=== PATIENT | female | born 1960 | race Caucasian/White ===

== ENCOUNTER → 2023-12-10 | Outpatient (CLI) | payer OTHER ==
--- NOTE | 2024-01-02 14:27 | MM ---
Reason for Exam: Screening (asymptomatic). Patient History: Menarche at age 10. First Full-Term at age 16. Postmenopausal. Risk Values: Charlene 5 year model risk: 1.2%. NCI Lifetime model risk: 4.6%. Tissue Density: The breasts are heterogeneously dense, which may obscure small masses. Findings: Analyzed By CAD. Right breast: There is no suspicious group of microcalcifications or new suspicious mass. Benign-appearing calcifications right breast. Left breast: There is no suspicious group of microcalcifications or new suspicious mass. Left breast suspected hematoma with focal upper outer fibroglandular tissue. Overall Assessment: Benign, BI-RAD 2 Management: Screening Mammogram of both breasts in [address] [facility] will attempt to contact patient to return for supplemental views and ultrasound if indicated. Patient should continue monthly self-breast exams. A clinical breast exam by your physician is recommended on an annual basis. This exam should not preclude additional follow-up of suspicious palpable abnormalities. Note on Charlene scores and lifetime risk: 1. A Charlene score greater than 3% is considered moderate risk. If this is the case, consider specialist referral to assess eligibility for a risk reducing agent. 2. If overall lifetime risk for the development of breast cancer is 20% or higher, the patient may qualify for future screening with alternating mammogram and breast MRI. Electronically signed and approved by: Kalia Diggs DO
== END | disposition home or self-care (01) ==
LOC: RADMAMWWP 13:50
PROVIDERS: ATTEND Family Medicine
DX: Z12.31 Encounter for screening mammogram for malignant neoplasm of breast (principal); Z78.0 Asymptomatic menopausal state
CPT/HCPCS: 77063; 77067

== ENCOUNTER 2024-07-14 08:44 | Day surgery (SDC) | payer OTHER ==
[~2024-07-14 08:44] MED LIST: LIDOCAINE 1% (10MG/ML) FOR IV START INTRADERMA PRN
[2024-07-14 09:09] VITALS: TEMP 98.9
[2024-07-14] MEDS: LACTATED RINGERS 1,000 ML IV SCH (09:18)
[2024-07-14] MEDS: IV FLUID CONTINUATION 1,000 ML IV ONE (09:18)
[2024-07-14] MEDS ORDERED: PROPOFOL 10 MG/ML 20 ML VIAL IV ONE (09:21)
[2024-07-14] MEDS ORDERED: LIDOCAINE 1% INJ 10MG/ML (20 ML MDV) ONE (09:21)
--- NOTE | 2024-07-14 09:26 | P.GSHP ---
History of Present Illness H&P Date: 07/14/24 Chief Complaint: Colon cancer screening 63-year-old female here for colonoscopy. She has not had 1 previously. No bowel complaints. No family history of colon cancer. Past Medical History Past Medical History: Hearing Disorder / Deafness, Osteoarthritis (OA), Rheumatoid Arthritis (RA) Additional Past Medical History / Comment(s): [place] left ear History of Any Multi-Drug Resistant Organisms: None Reported Past Surgical History: Tubal Ligation Additional Past Surgical History / Comment(s): d&c, attempted BMT as child did not need tubes. Past Anesthesia/Blood Transfusion Reactions: No Reported Reaction Smoking Status: Former smoker, Light tobacco smoker - Past Family History Father Family Medical History: Coronary Artery Disease (CAD), Diabetes Mellitus Mother Family Medical History: Coronary Artery Disease (CAD), Diabetes Mellitus Medications and Allergies Home Medications Medication Instructions Recorded Confirmed Type Ibuprofen [Motrin Ib] 200 mg PO DIRECTED PRN 07/10/24 07/14/24 History Unk Multi Vitamin 1 tab PO DAILY 07/10/24 07/14/24 History Unk Pro [place] 1 tab PO DAILY 07/10/24 07/14/24 History Unk Vitamin B 1 tab PO DAILY 07/10/24 07/14/24 History Allergies Allergy/AdvReac Type Severity Reaction Status Date / Time amoxicillin Allergy itching Verified 07/14/24 09:06 ,rash, anxious corn AdvReac itchy Verified 07/14/24 09:06 mouth, diarrhea Surgical - Exam Vital Signs Temp Pulse Resp BP Pulse Ox 98.9 F 68 18 134/63 98 07/14/24 09:07 07/14/24 09:07 07/14/24 09:07 07/14/24 09:07 07/14/24 09:07 Physical exam: General: Well-developed, well-nourished HEENT: Normocephalic, sclerae nonicteric Abdomen: Nontender, nondistended Extremities: No edema Neuro: Alert and oriented Assessment and Plan (1) Colon cancer screening Narrative/Plan: Will proceed with colonoscopy at this time. Current Visit: Yes Status: Acute Code(s): Z12.11 - ENCOUNTER FOR SCREENING FOR MALIGNANT NEOPLASM OF COLON SNOMED Code(s): 699768510
--- NOTE | 2024-07-14 09:36 | P.PCN ---
Date of Procedure: 07/14/24 Procedure(s) Performed: PREOPERATIVE DIAGNOSIS: Colon cancer screening POSTOPERATIVE DIAGNOSIS: Ileocecal valve polyp, diverticulosis PROCEDURE: Colonoscopy with snare polypectomy ANESTHESIA: MAC SURGEON: Omari Peters M.D. SPECIMENS: Polyp ENDOSCOPIC PROCEDURE: The patient was placed on the endoscopy table in the left decubitus position. The Olympus colonoscope was inserted into the anus and passed under direct visualization to the base of the cecum. The appendiceal orifice was visualized. From that point the scope was slowly withdrawn inspecting all surfaces carefully. There were no neoplastic inflammatory or polypoid lesions throughout the cecal base. Along the ileocecal valve there was a small polyp measuring about 5 to 6 mm. This was removed using the snare with cautery technique. The remainder of the ascending transverse descending sigmoid and rectum appeared normal with exception of left-sided diverticulosis. Digital rectal examination was normal. The patient was taken to the recovery room in stable condition per anesthesia guidelines. RECOMMENDATIONS: Await biopsy results. Will contact patient with timing of the next colonoscopy.
[2024-07-14 09:45] VITALS: BP 95/65; PULSE 75; RESP 14
== END 2024-07-14 10:11 | disposition home or self-care (01) ==
LOC: ORWHC2ENDO 08:44
PROVIDERS: ATTEND Surgery
DX: Z12.11 Encounter for screening for malignant neoplasm of colon (principal); K57.30 Diverticulosis of large intestine without perforation or abscess without bleeding; M06.9 Rheumatoid arthritis, unspecified; M19.90 Unspecified osteoarthritis, unspecified site; Z87.891 Personal history of nicotine dependence; Z88.0 Allergy status to penicillin; Z94.81 Bone marrow transplant status; Z98.51 Tubal ligation status; Z79.899 Other long term (current) drug therapy
CPT/HCPCS: 88305; 45385; J2003; J2704